=== PATIENT | female | born 1955 | race Caucasian/White ===

== ENCOUNTER 2018-12-23 09:51 | Emergency (ER) | payer MEDICARE, MEDICAID ==
[2018-12-23 11:18] VITALS: BP 115/87
[2018-12-23] MEDS ORDERED: Ondansetron ODT TAB* 4 MG PO ONE (11:27)
[2018-12-23] MEDS ORDERED: Ibuprofen TAB* 600 MG PO ONE (11:27)
--- NOTE | 2018-12-23 12:02 | ED ---
Respiratory - HPI Summary HPI Summary: 63 yr old with the complaint of fever, chills, nasal congestion and cough. Onset two days ago. Tylenol last taken this morning. She has had nausea and vomiting twice on Sunday. Non yesterday or today. She has no other complaints. - History of Current Complaint Chief Complaint: UCGeneralIllness Stated Complaint: FEVER,VOMITING Time Seen by Provider: 12/23/18 11:26 Pain Intensity: 0 - Allergy/Home Medications Allergies/Adverse Reactions: Allergies Allergy/AdvReac Type Severity Reaction Status Date / Time codeine Allergy Unknown Verified 12/23/18 11:21 Reaction Details Home Medications: Home Medications Acetaminophen [APAP] 650 mg PO Q4HR PRN 12/23/18 [History Confirmed 12/23/18] Aspirin [Aspirin EC] 81 mg PO DAILY 12/23/18 [History Confirmed 12/23/18] Atorvastatin* [Lipitor*] 20 mg PO 1700 12/23/18 [History Confirmed 12/23/18] Cetirizine HCl [All Day Allergy] 10 mg PO DAILY 12/23/18 [History Confirmed ] Cholecalciferol TAB* [Vitamin D TAB*] 1,000 unit PO DAILY 12/23/18 [History Confirmed 12/23/18] Fluticasone Furoate [Flonase Sensimist] 27.5 mcg NA DAILY 12/23/18 [History Confirmed 12/23/18] Lisinopril 20 mg PO DAILY 12/23/18 [History Confirmed 12/23/18] Montelukast Sodium TAB* [Singulair TAB*] 10 mg PO DAILY 12/23/18 [History Confirmed 12/23/18] Multivit with Calcium,Iron,Min [Multiple Vitamins For Women] 1 each PO DAILY [History Confirmed 12/23/18] Potassium Chloride [K-Tab] 20 meq PO DAILY 12/23/18 [History Confirmed 12/23/18] hydroCHLOROthiazide [Hydrochlorothiazide] 12.5 mg PO DAILY 12/23/18 [History Confirmed 12/23/18] PMH/Surg Hx/FS Hx/Imm Hx Endocrine/Hematology History: Reports: Hx Diabetes Cardiovascular History: Reports: Hx Hypertension - Surgical History Surgery Procedure, Year, and Place: Norplant Infectious Disease History: Yes Infectious Disease History: Reports: Hx Hepatitis - Hep B Denies: Traveled Outside the [place] in Last 30 Days - Family History Known Family History: Positive: None - Social History Occupation: Disabled Alcohol Use: None Substance Use Type: Reports: None Smoking Status (MU): Never Smoked Tobacco Review of Systems Positive: Fever, Chills Positive: Nasal Discharge Positive: Cough All Other Systems Reviewed And Are Negative: Yes Physical Exam Triage Information Reviewed: Yes Vital Signs On Initial Exam: Initial Vitals Temp Pulse Resp BP Pulse Ox 101.6 F 64 16 115/87 97 12/23/18 11:07 12/23/18 11:07 12/23/18 11:07 12/23/18 11:07 12/23/18 11:07 Vital Signs Reviewed: Yes Appearance: Positive: Well-Appearing, No Pain Distress Skin: Positive: Warm, Skin Color Reflects Adequate Perfusion Head/Face: Positive: Normal Head/Face Inspection Eyes: Positive: EOMI ENT: Positive: Nasal congestion, Nasal drainage, TMs normal Neck: Positive: Nontender Respiratory/Lung Sounds: Positive: Clear to Auscultation, Breath Sounds Present Cardiovascular: Positive: RRR. Negative: Murmur Abdomen Description: Negative: Distended Musculoskeletal: Positive: Strength/ROM Intact Neurological: Positive: Sensory/Motor Intact, Alert, Oriented to Person Place, Time, CN Intact II-III Psychiatric: Positive: Normal Diagnostics - Vital Signs Vital Signs Temp Pulse Resp BP Pulse Ox 12/23/18 11:07 101.6 F 64 16 115/87 97 - Laboratory Lab Statement: Any lab studies that have been ordered have been reviewed, and results considered in the medical decision making process. Disposition - Course Course Of Treatment: 63 yr old with URI. Rapid Flu is negative. - Diagnoses Provider Diagnoses: Upper respiratory infection Discharge ED - Sign-Out/Discharge Documenting (check all that apply): Patient Departure All imaging exams completed and their final reports reviewed: No Studies - Discharge Plan Condition: Good Disposition: HOME Patient Education Materials: Upper Respiratory Infection (DC) Referrals: Silvio Almanzar MD [Primary Care Provider] - 2 Days - Billing Disposition and Condition Condition: GOOD Disposition: Home
[2018-12-23 12:06] LABS: Influenza A Molecular NEGATIVE (Negative); Influenza B Molecular NEGATIVE (Negative)
== END 2018-12-23 12:23 | disposition home or self-care (01) ==
LOC: UCCORT 09:51
DX: J06.9 Acute upper respiratory infection, unspecified (principal); I10 Essential (primary) hypertension; E11.9 Type 2 diabetes mellitus without complications; Z88.5 Allergy status to narcotic agent; Z79.82 Long term (current) use of aspirin; Z79.899 Other long term (current) drug therapy
CPT/HCPCS: 99202; A9270-GY; G0463

== ENCOUNTER 2019-04-26 07:05 | Emergency (ER) | payer MEDICARE, MEDICAID ==
[2019-04-26 07:26] VITALS: BP 103/55
--- NOTE | 2019-04-26 07:47 | UC ---
Respiratory Complaint HPI - HPI Summary HPI Summary: Per customs and border protection officer: "fever over night, cough for 1 week" -lives in a facility and she is here w/ a staff member -non-smoker. no copd -feels fine ow -she is able to communicate and answer questions -no mylagias, ST, ear pain. -temp at facility tympanic 102.6, rpt ~ 1 hr later 102.1 reported by staff member -denies n/v/d/rash. -she was given APAP ~ 1-2 hrs ago - History of Current Complaint Chief Complaint: UCRespiratory Stated Complaint: FEVER/COUGH Time Seen by Provider: 04/26/19 07:21 Pain Intensity: 0 - Allergies/Home Medications Allergies/Adverse Reactions: Allergies Allergy/AdvReac Type Severity Reaction Status Date / Time codeine Allergy Unknown Verified 04/26/19 07:26 Reaction Details Home Medications: Home Medications Acetaminophen [APAP] 650 mg PO Q4HR PRN 12/23/18 [History Confirmed 04/26/19] Aspirin [Aspirin EC] 81 mg PO DAILY 12/23/18 [History Confirmed 04/26/19] Atorvastatin* [Lipitor*] 20 mg PO 1700 12/23/18 [History Confirmed 04/26/19] Cetirizine HCl [All Day Allergy] 10 mg PO DAILY 12/23/18 [History Confirmed ] Fluticasone Furoate [Flonase Sensimist] 27.5 mcg NA DAILY 12/23/18 [History Confirmed 04/26/19] Potassium Chloride [K-Tab] 20 meq PO DAILY 12/23/18 [History Confirmed 04/26/19] hydroCHLOROthiazide [Hydrochlorothiazide] 12.5 mg PO DAILY 12/23/18 [History Confirmed 04/26/19] lisinopriL [Lisinopril] 20 mg PO DAILY 12/23/18 [History Confirmed 04/26/19] Cephalexin CAP* [Keflex CAP*] 500 mg PO TID #21 cap 04/26/19 [Rx] PMH/Surg Hx/FS Hx/Imm Hx Endocrine History: Dyslipidemia Cardiovascular History: Hypertension - Surgical History Surgical History: None Surgery Procedure, Year, and Place: Norplant - Family History Known Family History: Negative: Respiratory Disease - no known asthma - Social History Alcohol Use: None Substance Use Type: None Smoking Status (MU): Never Smoked Tobacco Review of Systems All Other Systems Reviewed And Are Negative: Yes Constitutional: Positive: Fever. Negative: Chills, Fatigue Skin: Positive: Negative. Negative: Rash Eyes: Positive: Negative. Negative: Drainage, Eye Redness ENT: Positive: Negative. Negative: Sore Throat, Ear Ache, Nasal Discharge, Sinus Congestion, Sinus Pain/Tenderness Respiratory: Positive: Cough. Negative: Shortness Of Breath Cardiovascular: Positive: Negative. Negative: Palpitations, Chest Pain Gastrointestinal: Positive: Negative. Negative: Abdominal Pain, Vomiting, Diarrhea, Nausea Genitourinary: Positive: Negative. Negative: Dysuria Motor: Positive: Negative Neurovascular: Positive: Negative Musculoskeletal: Positive: Negative Neurological/Mental Status: Positive: Negative Psychological: Positive: Negative Is Patient Immunocompromised?: No Physical Exam Appearance: Well-Appearing, No Pain Distress, Well-Nourished Vital Signs: Initial Vital Signs Temp 99.5 F 04/26/19 07:20 Pulse 106 04/26/19 07:20 Resp 16 04/26/19 07:20 BP 103/55 04/26/19 07:20 Pulse Ox 95 04/26/19 07:20 Eye Exam: Normal ENT Exam: Normal ENT: Positive: Pharynx normal, TMs normal - left is cerumne impacted, Uvula midline. Negative: Tonsillar swelling, Tonsillar exudate, Sinus tenderness Neck exam: Normal Neck: Positive: Supple, Nontender, No Lymphadenopathy Respiratory Exam: Normal - no cough throughout entire time I was in the room Respiratory: Positive: Lungs clear, Normal breath sounds, No respiratory distress, No accessory muscle use. Negative: Crackles, Rhonchi, Stridor, Wheezing Cardiovascular Exam: Normal Cardiovascular: Positive: RRR Abdominal Exam: Normal Abdomen Description: Positive: Nontender, Soft. Negative: CVA Tenderness (R), CVA Tenderness (L), Distended, Guarding, Peritoneal Signs Musculoskeletal Exam: Normal Neurological Exam: Normal Psychological Exam: Normal Skin Exam: Normal Skin: Negative: Rashes Respiratory Course/Dx - Course Course Of Treatment: temp of 102 tympanic w/ cough x 1 wk. -CXR - neg reviewed by me, awaiting offiical report UA + nitrates, + 1 blood, + LE -treat w/ keflex 500mgs tID x 7 d , f/u 1/ pcp 10d-2 wks CXR report was reviewed after her dc. neg. NAD - Differential Dx/Diagnosis Differential Diagnosis/HQI/PQRI: Lower Resp Infection, Other Provider Diagnosis: UTI (urinary tract infection) Discharge ED - Sign-Out/Discharge Documenting (check all that apply): Patient Departure All imaging exams completed and their final reports reviewed: Yes - Discharge Plan Condition: Stable Disposition: HOME Prescriptions: Cephalexin CAP* [Keflex CAP*] 500 mg PO TID #21 cap Patient Education Materials: Urinary Tract Infection in Women (ED) Referrals: Silvio Almanzar MD [Primary Care Provider] - 2 Weeks Additional Instructions: It is recommended that you take a probiotic daily while you are on antibiotics. A few common brands that you can buy over the counter are colon health, align and florastor. These can help prevent a colon infection called c diff that can be associated with antibiotic use. - Billing Disposition and Condition Condition: STABLE Disposition: Home
== END 2019-04-26 08:40 | disposition home or self-care (01) ==
LOC: UCCORT 07:05
DX: N39.0 Urinary tract infection, site not specified (principal); I10 Essential (primary) hypertension; E78.5 Hyperlipidemia, unspecified; R05 Cough; Z88.5 Allergy status to narcotic agent; Z79.82 Long term (current) use of aspirin; Z79.899 Other long term (current) drug therapy
CPT/HCPCS: 71046; 81003; 87077; 87086; 87186; 99212; G0463